=== PATIENT | male | born 1995 | race African-American/Black ===

== ENCOUNTER 2016-12-19 11:33 | Emergency (ER) | payer OTHER ==
[~2016-12-19] VITALS: Ht 172.7 cm; Wt 81.9 kg
[2016-12-19 11:37] VITALS: TEMP 36.7; Ht 172.7 cm; Wt 81.9 kg
--- NOTE | 2016-12-19 12:32 | DIAGNOSTIC IMAGING REPORT ---
RIGHT KNEE 3 VIEWS CLINICAL HISTORY: Right knee pain COMPARISON: None. DISCUSSION: No fractures or dislocations are visualized. No destructive lesions are evident. IMPRESSION: No fractures or dislocations are visualized. Electronically signed by: Naeem Montero M.D. 12/19/2016 12:31 PM Dictated Date/Time: 12/19/2016 12:30 PM
[2016-12-19 13:20] VITALS: BP 149/74; PULSE 68; O2SAT 97
--- NOTE | 2016-12-21 00:03 | EMERGENCY ROOM VISIT NOTE ---
ED Visit Note First contact with patient: 11:43 Chief Complaint: I hurt my right knee. History of Present Illness: Mr. Kaur is a 21-year-old black male who ambulates into the ED complaining of anterior right knee pain. Patient reports he was playing soccer on Monday Review of Systems: As noted above in history of present illness. At least body systems were reviewed and found to be negative as noted above., One day ago. He reports he collided into another player and fell onto the ground onto his right knee. Since that time he has noted pain and swelling over the medial knee. Currently he describes his pain as a achy sensation over the medial joint line in the area of the collateral ligament. He rates his discomfort 8/10. The pain is nonradiating. The pain worsens with flexion beyond 90, palpation and weightbearing. He has not identified any alleviating factors related to the pain. He has not taken any medications for pain prior to arrival at the hospital, but does report he has been putting ice over the area pain and swelling. He denies any associated symptoms including hip pain, thigh pain, lower leg pain, ankle pain, leg weakness/numbness/tingling. Additionally he denies any previous significant injuries or surgeries to the right knee. Past Medical History: Status post appendectomy. Current Medications: Patient denies. Allergies to Medications: Patient denies. Social History: Patient is currently University student; he feels safe in his home environment; he denies tobacco and alcohol use. Physical Examination: Vital Signs: Date Time Temp Pulse Resp B/P (MAP) Pulse Ox O2 Delivery O2 Flow Rate FiO2 12/19/16 13:20 68 18 149/74 97 12/19/16 11:37 36.7 67 18 142/89 99 Room Air GENERAL: 21-year-old male in mild distress due to pain, nontoxic-appearing, afebrile and hemodynamically stable. NEUROLOGICAL: Awake, alert and oriented to person, place and time. Answering questions appropriately and following commands. SKIN: Warm, dry and pink. RIGHT LOWER EXTREMITY: No gross bony deformity. No shortening or malrotation. No tenderness in the hip, thigh, lower leg, ankle or foot. Negative bounce test. Negative patellar apprehension test. Negative ballottement test. Moderate tenderness over the medial joint line. Increase in pain without distress on the knee and collateral ligament. There is a mild to moderate laxity of the medial collateral ligament when compared to the other side. No tenderness over the lateral joint line. No laxity of the cruciate or lateral collateral ligament. Throughout the lower leg the skin was warm and pink and capillary refill is brisk. He was able to distinctly slight sensations to all dermatomes. Full range of motion in plantar flexion and dorsiflexion of the ankle and flexion and extension of all toes. ED Course: Patient is assessed as noted above. Patient's medication list was reviewed. Patient was offered pain medication and refused it was given a bag of ice for pain and comfort. Right Knee X-Rays: Were read by myself and the radiologist showing no acute fractures or dislocations. No evidence of joint effusion. Patient was placed in a knee immobilizer and on nonweightbearing crutches. Patient was educated about today's findings and instructed on his treatment plan ; he verbalizes understanding and agreement with this plan. Clinical Impression: Right knee medial collateral ligament strain. Decision-Making: Initially my differential diagnosis I considered collateral ligament strain, cruciate ligament strain, meniscus injury, joint fracture/ subluxation/dislocation and other causes. Disposition: Patient discharged home in stable condition; prior to departure he was reassessed and subjectively reported he was feeling better and rated his discomfort 6/10. Plan: Comfort measures including rest, ice, knee immobilizer and crutch use and alternating ibuprofen and acetaminophen every 3 hours were discussed with the patient. Patient was encouraged to follow-up with utility specialist if no better in 7 -10 days. Patient was encouraged return ED for worsening/uncontrolled pain, uncontrolled swelling, leg weakness/numbness/tingling or any new/concerning symptoms.
== END 2016-12-19 13:21 | disposition home or self-care (01) ==
LOC: C.EDB 11:35 → C.EDD 13:21
DX: S83.411A Sprain of medial collateral ligament of right knee, initial encounter (principal); W03.XXXA Other fall on same level due to collision with another person, initial encounter; Y93.66 Activity, soccer